=== PATIENT | male | born 1985 | race Caucasian/White ===

== ENCOUNTER 2019-06-23 07:13 | Emergency (ER) | payer MEDICAID ==
[~2019-06-23] VITALS: Ht 193 cm; Wt 114.8 kg
[2019-06-23 07:59] VITALS: BP 110/75
== END 2019-06-23 08:58 | disposition home or self-care (01) ==
LOC: ED 07:53
DX: J45.31 Mild persistent asthma with (acute) exacerbation (principal); M94.0 Chondrocostal junction syndrome [Tietze]; B34.9 Viral infection, unspecified; F32.9 Major depressive disorder, single episode, unspecified; Z90.89 Acquired absence of other organs
CPT/HCPCS: 71046; 93005; 94640; 99283; J7512; J7620